=== PATIENT | female | born 1975 | race Caucasian/White ===

== ENCOUNTER 2018-07-23 17:41 | Emergency (ER) | payer OTHER ==
[2018-07-23] MEDS: IBUPROFEN 600 MG TAB PO (18:36)
[2018-07-23] MEDS: LORAZEPAM 1 MG TAB PO (18:36)
== END 2018-07-23 20:09 | disposition home or self-care (01) ==
LOC: FTE 17:41
DX: M54.2 Cervicalgia (principal)
CPT/HCPCS: 99283; Z7502